=== PATIENT | male | born 1975 | race Caucasian/White ===

== ENCOUNTER 2023-10-12 18:35 | Observation (INO) ==
--- NOTE | 2023-10-12 18:41 | ED Triage Note ---
Date of Service October 12, 2023 Provider in Triage Author: Hetal Hawkins History of Present Illness This patient was briefly evaluated while in triage. An abbreviated physical exam was performed. This patient is a 48-year-old Male who presents to the ED for evaluation of abdominal pain, nausea, vomiting off and on for 2 weeks. No diarrhea. No previous abdominal issues or surgeries. Also having some shortness of breath. Symptoms worse with eating. Physical Exam CONSTITUTIONAL: No acute distress. Well appearing. RESPIRATORY: Clear to auscultation bilaterally. Equal expansion bilaterally. CARDIOVASCULAR: Regular rate and rhythm. GASTROINTESTINAL: Tenderness to palpation throughout the upper abdomen, soft and nondistended. Active bowel sounds. NEUROLOGIC: Alert and oriented X 4 with normal affect. Initial orders for labs and / or imaging were placed and patient was placed in the waiting area until a bed is available. Please see further documentation for the full ED course.
[2023-10-12 19:34] LABS: Basophils # (auto) 0.05 K/uL (0.00-0.20); Basophils % (auto) 0.5 %; Hematocrit (blood only) 42.2 % (42.0-52.0); Hemoglobin 14.2 g/dl (14.0-18.0); Immature Granulocytes # (auto) 0.03 K/uL (0.01-0.20); Immature Granulocytes % (auto) 0.3 %; Lymphocytes # (auto) 1.03 K/uL (1.20-3.40); Lymphocytes % (auto) 10.4 %; Mean Corpuscular Hemoglobin 29.2 pg (25.0-34.0); Mean Corpuscular Hgb Conc 33.6 g/dL (32.0-36.0); Mean Corpuscular Volume 86.7 fL (80.0-100.0); Monocytes # (auto) 0.73 K/uL (0.11-0.59); Monocytes % (auto) 7.4 %; Neutrophils # (auto) 7.87 K/uL (1.40-6.50); Neutrophils % (auto) 79.4 %; Platelet Count 289 K/uL (130-400); RDW Coefficient of Variation 13.4 % (11.5-14.5); RDW Standard Deviation 42.5 fL (36.4-46.3); Red Blood Count 4.87 M/uL (4.70-6.10); White Blood Count 9.91 K/ul (4.8-10.8)
[2023-10-12 19:51] LABS: Alanine Aminotransferase 171 U/L (7-52); Albumin Globulin Ratio 1.4 (0.9-2); Albumin Level 4.2 gm/dl (3.4-5.0); Alkaline Phosphatase 88 U/L (34-104); Anion Gap 7 (3-11); Aspartate Aminotransferase 137 U/L (13-39); BUN Creatinine Ratio 19.7 (10-20); Bilirubin,Total 1.3 mg/dl (0.2-1.0); Blood Urea Nitrogen 13 mg/dl (6-23); Calcium 9.1 mg/dl (8.6-10.3); Carbon Dioxide 28 mmol/L (21-32); Chloride 107 mmol/L (98-107); Creatinine Clr Calc Pharmacy 122.2 ml/min; Est GFR (African American) 131.6 ml/min; Est GFR (Non-African American) 113.5 ml/min; Globulin 3.1 gm/dl (2.5-4.0); Glucose 134 mg/dl (70-99(Fasting)); Lipase 34 U/L (11-82); Potassium 3.9 mmol/L (3.5-5.1); Sodium 142 mmol/L (136-145); Total Protein 7.3 gm/dl (6.0-8.3)
[2023-10-12 19:57] LABS: Troponin I High Sensitivity < 2.3 pg/ml (0-20)
[2023-10-12] MEDS: OPTIRAY 320 100ml IV ONE (20:39)
--- NOTE | 2023-10-12 21:02 | CT Scan Report ---
Exam(s): CT ABDOMEN + PELVIS With Contrast IV Amt: OPTIRAY 320 87ML EXAM: CT Abdomen and Pelvis With Intravenous Contrast CLINICAL HISTORY: Reason for exam: upper abdominal pain, vomiting. TECHNIQUE: Axial computed tomography images of the abdomen and pelvis with intravenous contrast. CTDI is 10.86 mGy and DLP is 526.37 mGy-cm. Automated exposure control was utilized for the study. A dose lowering technique was utilized adhering to the principles of ALARA. CONTRAST: Patient received OPTIRAY 320 87ML of IV contrast COMPARISON: No relevant prior studies available. FINDINGS: Lung bases are clear. There is cholelithiasis, gallbladder distention, and pericholecystic fluid. There is mild biliary dilatation with prominence of the intrahepatic bile ducts and common bile duct measuring 8 mm. No calcified duct stone is visible. Liver is significant for mild periportal edema but is otherwise unremarkable. Spleen is normal. Pancreas appears normal, without pancreatic inflammation or duct dilatation. Adrenal glands are normal. Kidneys enhance symmetrically. There is no hydronephrosis. Subcentimeter cortical cyst is present at the lower pole of the left kidney; no further follow-up is required. There may be a few punctate nonobstructing kidney stones bilaterally, but evaluation is limited by contrast phase. There is minor atherosclerosis of the abdominal aorta without aneurysm. There is no adenopathy. There is no free fluid or free air. Stomach and small bowel are fluid-filled. There is no mechanical obstruction. No mucosal thickening is evident. There is diverticulosis of the colon without diverticulitis. Appendix is normal. Urinary bladder and prostate are normal. Regional skeleton appears intact. There is disc degeneration in the lumbar spine. IMPRESSION: 1. Cholelithiasis, gallbladder distention, and pericholecystic fluid. Correlate clinically for cholecystitis. Consider ultrasound. 2. Mild biliary dilatation. No calcified choledocholithiasis visible. There is laboratory evidence of biliary obstruction, consider MRCP. 3. Fluid in the stomach and small bowel may reflect ileus or gastroenteritis. Electronically signed by: Felipe Stallworth M.D. 10/12/23 21:01 PM
[2023-10-12] MEDS: KETOROLAC TROMETHAMINE 15 MG/ML VIAL IV ONE (21:24)
[2023-10-12] MEDS: ONDANSETRON INJ 2 MG/ML 2 ML VIAL IV STA (21:26)
[2023-10-12] MEDS: FAMOTIDINE 20MG IV PUSH 20 MG/5 ML SYR IV STA (21:27)
[2023-10-12] MEDS: HYDROmorphone INJ 0.5 MG/0.5 ML SYR IV PRN (21:28)
[2023-10-12] MEDS: cefOXitin 2,000 MG/60 ML BAG IV STA (21:42)
[2023-10-12] MEDS: SODIUM CHLORIDE 0.9% 1,000 ML IV ONE (21:46)
[2023-10-12] MEDS: SODIUM CHLORIDE 0.9% 1,000 ML IV SCH (21:55)
--- NOTE | 2023-10-12 22:49 | Emergency Department Note ---
Impression & Plan Acute cholecystitis, Abdominal pain, right upper quadrant, Ileus, Nausea & vomiting ED Provider Note NAME: MASOOD ROSALES AGE: 48 SEX: Male INFORMANT: Patient ED PROVIDER(S): David Eckert MD CHIEF COMPLAINT: Upper abdominal pain PLAN: Disposition: Admitted Outpatient prescription management: none Referral: None MEDICAL DECISION MAKING: Patient presented because of abdominal pain and vomiting. The patient was quite uncomfortable. Protocol testing was performed due to high volume and high acuity in the emergency department. The patient was assessed. He was found to have an unremarkable CBC but elevated LFTs on chemistry panel. Patient's troponin and lipase unremarkable. ECG without acute ischemia. Chest x-ray negative. CT scan of the abdomen pelvis was very concerning for an ileus as well as cholecystitis. Radiology recommended MRCP versus ultrasound. Consultation was placed with surgery, Dr. Arce. He agreed with the MRCP route and asked for medicine to admit. Patient was treated with fluids, Dilaudid, Zofran, Pepcid and Mefoxin. Consultation was made with Dr. Calvin, [facility] service. Case was discussed and diagnostics were reviewed. Evaluated patient in the ER and admitted him for further management Care/management discussed with: manager of security Level of care consideration(s): After review of the information above and other included data, I feel the patient requires escalation of care to admission Triage Nursing notes: reviewed and agree them. Vital Signs: reviewed and remarkable for no significant abnormalities Additional History obtained from: none Chronic Medical/Social Conditions affecting care: none Prior/ Outside/ External records reviewed: none Differential Diagnosis: PUD, pancreatitis, biliary pathology, Appendicitis, testicular torsion, infections, diverticulitis, UTI, obstruction, mesenteric ischemia, aortic pathology, inflammatory bowel disease, renal colic, hernia, volvulus, constipation, as well as other pathologies. Diagnostics, independently interpreted by me: ECG: Twelve-lead ECG reveals a sinus rhythm with short RI at 81 bpm. Left axis deviation. Cardiac Monitoring: Cardiac monitoring ordered by me: The patient was placed on continuous cardiac monitoring and observed. It revealed a normal sinus rhythm at 76 beats per minute without ectopy or evidence of dysrhythmia. Medical decision rules: none Imaging studies: Chest x-ray. Findings: A chest x-ray was performed and revealed no pneumothorax, effusion, infiltrate, pulmonary edema, free air under the diaphragm, or wide mediastinum. Impression: No acute disease. I refer you to the EMR for further details. HPI: 48 year old Male arrives for evaluation of abdominal pain. This started this morning and is worsening throughout the day. The patient also notes the following associated symptoms, nausea, vomiting. Patient has right upper quadrant abdominal pain. Patient had an episode last week but that resolved after about half a day. Patient did note some clear vomitus as well as some dark appearance. The patient has found no relieving factors. Current pain is rated as 8/10. No prior abdominal surgeries. Pt denies LOC, headache, fevers, chills, diaphoresis, visual changes, neck pain, chest pain, breathing difficulties, back pain, melena, hematochezia, urinary symptoms, numbness, weakness, lymphadenopathy, rash, or other complaints. PAST MEDICAL HISTORY: See Below, patient did PAST SURGICAL HISTORY: See Below, SOCIAL HISTORY: See Below, smoker HOME MEDICATIONS: See Below ALLERGIES: See Below VITALS: See Below PHYSICAL EXAMINATION: GENERAL: Awake, alert, uncomfortable-appearing, in moderate distress HENT: Normocephalic, atraumatic. Oropharynx unremarkable. EYES: Normal conjunctiva. Sclera non-icteric. NECK: Inspection normal. Non-tender. Supple. No nuchal rigidity. FROM. No masses. RESPIRATORY: Clear to auscultation. No wheezes. No rales. Normal respiratory effort. CARDIAC: Normal rate. Normal rhythm. No murmurs. No rubs. Extremities warm and well perfused. Pulses equal. No JVD. GI: Soft, non-distended. Right upper quadrant tenderness to palpation. No rebound or guarding. No masses. RECTAL: Deferred. MUSCULOSKELETAL: Atraumatic. Chest examination reveals no tenderness. The back is symmetrical on inspection without obvious abnormality. There is no CVA tenderness to palpation. No joint edema. LOWER EXTREMITIES: Calves are equal size bilaterally and non-tender. No edema. No discoloration. NEURO: Normal sensorium. No sensory or motor deficits noted. SKIN: No rash or jaundice noted. PROCEDURES: none CRITICAL CARE: none OBSERVATION NOTE: none Past Med/Surg History Social History Smoking Status: Current every day smoker Preferred Language: Russian Feels Safe at Home: Yes Allergies Allergies Allergy/AdvReac Type Severity Reaction Status Date / Time No Known Allergies Allergy Unverified 10/12/23 21:30 Home Meds Home Medications Medication Instructions Recorded Confirmed No Known Home Medications 10/12/23 10/12/23 Results & Data (ED) Vital Signs Vital Signs - 24 hr 10/12/23 18:36 10/12/23 18:36 10/12/23 21:42 Temperature 36.6 C Temperature Source Temporal Artery Scan Pulse Rate 91 H 70 Pulse Rate [Right Finger] Respiratory Rate 18 16 Blood Pressure 119/82 Blood Pressure [Left Arm] Blood Pressure Mean 94 Blood Pressure Mean [Left Arm] Blood Pressure Position [Left Arm] Pulse Oximetry 97 Oxygen Delivery Method Sepsis Recent Fever Within 48 Hours No Sepsis New/Unexplained Change in Mental Status N/A Sepsis Action Taken by Nursing No Action Required 10/12/23 21:59 Temperature Temperature Source Pulse Rate Pulse Rate [Right Finger] 76 Respiratory Rate 24 Blood Pressure Blood Pressure [Left Arm] 135/88 Blood Pressure Mean Blood Pressure Mean [Left Arm] 103 Blood Pressure Position [Left Arm] Lying Pulse Oximetry 99 Oxygen Delivery Method Room Air Sepsis Recent Fever Within 48 Hours Sepsis New/Unexplained Change in Mental Status Sepsis Action Taken by Nursing Laboratory Data 10/12/23 19:17 10/12/23 19:17 Lab Results 10/12/23 Range/Units 19:17 WBC 9.91 (4.8-10.8) K/ul RBC 4.87 (4.70-6.10) M/uL Hgb 14.2 (14.0-18.0) g/dl Hct 42.2 (42.0-52.0) % MCV 86.7 (80.0-100.0) fL MCH 29.2 (25.0-34.0) pg MCHC 33.6 (32.0-36.0) g/dL RDW Std Deviation 42.5 (36.4-46.3) fL RDW Coeff of Atiya 13.4 (11.5-14.5) % Plt Count 289 (130-400) K/uL MPV 10.0 (9.4-12.4) fL Immature Gran % (Auto) 0.3 % Neut % (Auto) 79.4 % Lymph % (Auto) 10.4 % [place] % (Auto) 7.4 % Eos % (Auto) 2.0 % Baso % (Auto) 0.5 % Neut # (Auto) 7.87 H (1.40-6.50) K/uL Lymph # (Auto) 1.03 L (1.20-3.40) K/uL [place] # (Auto) 0.73 H (0.11-0.59) K/uL Eos # (Auto) 0.20 (0.00-0.50) K/uL Baso # (Auto) 0.05 (0.00-0.20) K/uL Immature Gran # (Auto) 0.03 (0.01-0.20) K/uL Sodium 142 (136-145) mmol/L Potassium 3.9 (3.5-5.1) mmol/L Chloride 107 (98-107) mmol/L Carbon Dioxide 28 (21-32) mmol/L Anion Gap 7 (3-11) BUN 13 (6-23) mg/dl Creatinine 0.66 (0.6-1.4) mg/dl Est Cr Clr Drug Dosing 122.2 ml/min Est GFR ( Amer) 131.6 ml/min Est GFR (Non-Af Amer) 113.5 ml/min BUN/Creatinine Ratio 19.7 (10-20) Glucose 134 H (70-99(Fasting)) mg/dl Calcium 9.1 (8.6-10.3) mg/dl Total Bilirubin 1.3 H (0.2-1.0) mg/dl AST 137 H (13-39) U/L ALT 171 H (7-52) U/L Alkaline Phosphatase 88 (34-104) U/L Troponin I High Sens < 2.3 (0-20) pg/ml Total Protein 7.3 (6.0-8.3) gm/dl Albumin 4.2 (3.4-5.0) gm/dl Globulin 3.1 (2.5-4.0) gm/dl Albumin/Globulin Ratio 1.4 (0.9-2) Lipase 34 (11-82) U/L Administered Medications Hydromorphone HCl (Hydromorphone Inj 0.5 Mg/0.5 Ml Syr) 0.5 mg IV Q15M PRN PRN Reason: Pain Stop: 10/26/23 21:07 Last Admin: 10/12/23 21:28 Dose: 0.5 mg Documented By: TJS Sodium Chloride (Nss) 1,000 mls @ 125 mls/hr IV .Q8H CASEY Stop: 11/11/23 21:14 Last Admin: 10/12/23 21:55 Dose: 125 mls/hr Documented By: ZULEYMA Discontinued Medications Sodium Chloride (Nss) 1,000 mls @ 999 mls/hr IV .Q1H1M ONE Stop: 10/12/23 22:08 Last Admin: 10/12/23 21:46 Dose: 999 mls/hr Documented By: ZULEYMA Famotidine (Pepcid 20mg Iv Push) 20 mg in 5 mls @ 2.5 mls/min IV NOW STA Stop: 10/12/23 21:10 Last Admin: 10/12/23 21:27 Dose: 2.5 mls/min Documented By: ZULEYMA Cefoxitin Sodium (Mefoxin) 2,000 mg in 60 mls @ 100 mls/hr IV NOW STA Stop: 10/12/23 21:44 Last Infusion: 10/12/23 22:26 Dose: Infused Documented By: Admin: 10/12/23 21:42 Dose: 100 mls/hr Documented By: ZULEYMA Ioversol (Optiray 320 100ml) 87 ml IV ONCE ONE Stop: 10/12/23 20:39 Last Admin: 10/12/23 20:39 Dose: 87 ml Documented By: GIOVANA Ketorolac Tromethamine (Ketorolac Tromethamine 15 Mg/Ml Vial) 10 mg IV NOW ONE Stop: 10/12/23 21:09 Last Admin: 10/12/23 21:24 Dose: 10 mg Documented By: ZULEYMA Ondansetron HCl (Ondansetron Inj 2 Mg/Ml 2 Ml Vial) 4 mg IV NOW STA Stop: 10/12/23 21:09 Last Admin: 10/12/23 21:26 Dose: 4 mg Documented By: ZULEYMA Imaging Data Radiologist's Impression: Abdomen/Pelvis CT 10/12/23 18:43 Exam(s): CT ABDOMEN + PELVIS With Contrast IV Amt: OPTIRAY 320 87ML EXAM: CT Abdomen and Pelvis With Intravenous Contrast CLINICAL HISTORY: Reason for exam: upper abdominal pain, vomiting. TECHNIQUE: Axial computed tomography images of the abdomen and pelvis with intravenous contrast. CTDI is 10.86 mGy and DLP is 526.37 mGy-cm. Automated exposure control was utilized for the study. A dose lowering technique was utilized adhering to the principles of ALARA. CONTRAST: Patient received OPTIRAY 320 87ML of IV contrast COMPARISON: No relevant prior studies available. FINDINGS: Lung bases are clear. There is cholelithiasis, gallbladder distention, and pericholecystic fluid. There is mild biliary dilatation with prominence of the intrahepatic bile ducts and common bile duct measuring 8 mm. No calcified duct stone is visible. Liver is significant for mild periportal edema but is otherwise unremarkable. Spleen is normal. Pancreas appears normal, without pancreatic inflammation or duct dilatation. Adrenal glands are normal. Kidneys enhance symmetrically. There is no hydronephrosis. Subcentimeter cortical cyst is present at the lower pole of the left kidney; no further follow-up is required. There may be a few punctate nonobstructing kidney stones bilaterally, but evaluation is limited by contrast phase. There is minor atherosclerosis of the abdominal aorta without aneurysm. There is no adenopathy. There is no free fluid or free air. Stomach and small bowel are fluid-filled. There is no mechanical obstruction. No mucosal thickening is evident. There is diverticulosis of the colon without diverticulitis. Appendix is normal. Urinary bladder and prostate are normal. Regional skeleton appears intact. There is disc degeneration in the lumbar spine. IMPRESSION: 1. Cholelithiasis, gallbladder distention, and pericholecystic fluid. Correlate clinically for cholecystitis. Consider ultrasound. 2. Mild biliary dilatation. No calcified choledocholithiasis visible. There is laboratory evidence of biliary obstruction, consider MRCP. 3. Fluid in the stomach and small bowel may reflect ileus or gastroenteritis. Electronically signed by: Felipe Stallworth M.D. 10/12/23 21:01 PM Discharge Plan Visit Data Chief Complaint: Abdominal Pain Stated Complaint: SEVERE ABD/CHEST PAIN ED Provider: David Eckert Discharge Problem: Acute cholecystitis, Abdominal pain, right upper quadrant, Ileus, Nausea & vomiting Forms Stand Alone Forms: My [employer] Prescriptions Prescriptions: No Action No Known Home Medications Referrals Referrals: PCP,NO [Primary Care Provider] -
--- NOTE | 2023-10-12 22:55 | History & Physical Report ---
Date of Service October 12, 2023 Assessment & Plan (1) Acute cholecystitis: Plan: 48-year-old male with no significant past medical history presents with abdominal pain and found to have cholecystitis. Patient states since last 1 month he is getting abdominal pain on and off and last 2 weeks is more consistent. Since last night he has constant pain in the right upper upper quadrant epigastric region and today pain progressed to very severe associate with nausea and vomited couple of times which prompted him come to the ER and CT scan showing possible cholecystitis. Whenever the pain is severe is feeling short of breath. And the pain radiating to the chest. Also having headache since last 10 days. Vision is also somewhat blurry since a few weeks now. Denies any headache. No runny nose. No sore throat. No cough. No patient is usually constipated. Stools are dark. Urine also dark. Ambulates okay. Currently resting comfortably and hemodynamically stable. Patient has not been to doctors for many years Acute cholecystitis Abdominal pain Elevated LFTs CT scan possible cholecystitis Will do MRCP and if any CBD stone will consult GI Follow repeat labs in a.m. N.p.o., IV fluids, IV cefoxitin, IV Dilaudid., IV antiemetics as needed Surgery consult in a.m. Close monitor DVT prophylaxis SCDs for now Disposition Medical floor Full code History of Present Illness Chief Complaint: Abdominal pain Primary Care Provider: NO PCP 48-year-old male with no significant past medical history presents with abdominal pain and found to have cholecystitis. Patient states since last 1 month he is getting abdominal pain on and off and last 2 weeks is more consistent. Since last night he has constant pain in the right upper upper quadrant and epigastric region and today pain progressed to very severe associate with nausea and vomited couple of times which prompted him come to the ER and CT scan showing possible cholecystitis. Whenever the pain is severe is feeling short of breath. And the pain radiating to the chest. Also having headache since last 10 days. Vision is also somewhat blurry since a few weeks now. Denies any headache. No runny nose. No sore throat. No cough. Patient is usually constipated. Stools are dark. Urine also dark. Ambulates okay. C urrently resting comfortably and hemodynamically stable. Patient has not been to doctors for many years Past medical history. No significant medical history as per patient, but not been to doctors for many years Past surgical history. Denies any surgical history. Social history. Patient used to smoke half pack every week but states since last 40 days he is only smoked 3 cigarettes. Says quit alcohol many many years ago. 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 Family history. Significant for diabetes as per patient Allergies Allergy/AdvReac Type Severity Reaction Status Date / Time No Known Allergies Allergy Unverified 10/12/23 21:30 Home Medications Medication Instructions Recorded Confirmed Type No Known Home Medications 10/12/23 10/12/23 History Past Med/Surg History Social History Smoking Status: Never smoker Hx Alcohol Use: No Hx Substance Use: Yes Last Used Substance: Unknown Preferred Language: Estonian Communication Ability: Effective Graphic Manager Required: No Beliefs That Will Affect Care: None Current Living Situation: Other Current Living Situation Comment: friend Other Information That Helps Us Care for You: No Feels Safe at Home: Yes Safety Concerns: Feels Safe At This Time Assistive Devices: None Review of Systems Review of Systems: All systems reviewed & are unremarkable except as noted in HPI & below Physical Exam Physical Exam: General- Not in distress Head- atraumatic Eyes- PERRL. ENT- oropharynx clear Neck- supple, no JVD. Lungs- clear to auscultation no wheezing or crackles. Heart- regular rate and rhythm; no murmur, no gallop. Abdomen- normal bowel sounds, soft, RUQ tenderness with mild guarding present. No distension. Extremities- no pretibial edema, no erythema seen. Neuro- alert, oriented PERRL, no facial palsy; no dysarthria; moves extremities. Results & Data Results & Data Vital Signs (Past 12 Hours) Vital Signs Temp Pulse Pulse Resp BP BP Pulse Ox 10/12/23 21:59 76 24 135/88 99 10/12/23 21:42 70 10/12/23 18:36 16 10/12/23 18:36 36.6 C 91 H 18 119/82 97 O2 Del Method 10/12/23 21:59 Room Air 10/12/23 21:42 10/12/23 18:36 10/12/23 18:36 Diagnostic Findings Laboratory Results WBC 9.91 K/ul (4.8-10.8) 10/12/23 19:17 RBC 4.87 M/uL (4.70-6.10) 10/12/23 19:17 Hgb 14.2 g/dl (14.0-18.0) 10/12/23 19:17 Hct 42.2 % (42.0-52.0) 10/12/23 19:17 MCV 86.7 fL (80.0-100.0) 10/12/23 19:17 MCH 29.2 pg (25.0-34.0) 10/12/23 19:17 MCHC 33.6 g/dL (32.0-36.0) 10/12/23 19:17 RDW Std Deviation 42.5 fL (36.4-46.3) 10/12/23 19:17 RDW Coeff of Atiya 13.4 % (11.5-14.5) 10/12/23 19:17 Plt Count 289 K/uL (130-400) 10/12/23 19:17 MPV 10.0 fL (9.4-12.4) 10/12/23 19:17 Immature Gran % (Auto) 0.3 % 10/12/23 19:17 Neut % (Auto) 79.4 % 10/12/23 19:17 Lymph % (Auto) 10.4 % 10/12/23 19:17 [place] % (Auto) 7.4 % 10/12/23 19:17 Eos % (Auto) 2.0 % 10/12/23 19:17 Baso % (Auto) 0.5 % 10/12/23 19:17 Neut # (Auto) 7.87 K/uL (1.40-6.50) H 10/12/23 19:17 Lymph # (Auto) 1.03 K/uL (1.20-3.40) L 10/12/23 19:17 [place] # (Auto) 0.73 K/uL (0.11-0.59) H 10/12/23 19:17 Eos # (Auto) 0.20 K/uL (0.00-0.50) 10/12/23 19:17 Baso # (Auto) 0.05 K/uL (0.00-0.20) 10/12/23 19:17 Immature Gran # (Auto) 0.03 K/uL (0.01-0.20) 10/12/23 19:17 Sodium 142 mmol/L (136-145) 10/12/23 19:17 Potassium 3.9 mmol/L (3.5-5.1) 10/12/23 19:17 Chloride 107 mmol/L (98-107) 10/12/23 19:17 Carbon Dioxide 28 mmol/L (21-32) 10/12/23 19:17 Anion Gap 7 (3-11) 10/12/23 19:17 BUN 13 mg/dl (6-23) 10/12/23 19:17 Creatinine 0.66 mg/dl (0.6-1.4) 10/12/23 19:17 Est Cr Clr Drug Dosing 122.2 ml/min 10/12/23 19:17 Est GFR ( Amer) 131.6 ml/min 10/12/23 19:17 Est GFR (Non-Af Amer) 113.5 ml/min 10/12/23 19:17 BUN/Creatinine Ratio 19.7 (10-20) 10/12/23 19:17 Glucose 134 mg/dl (70-99(Fasting)) H 10/12/23 19:17 Calcium 9.1 mg/dl (8.6-10.3) 10/12/23 19:17 Total Bilirubin 1.3 mg/dl (0.2-1.0) H 10/12/23 19:17 AST 137 U/L (13-39) H 10/12/23 19:17 ALT 171 U/L (7-52) H 10/12/23 19:17 Alkaline Phosphatase 88 U/L (34-104) 10/12/23 19:17 Troponin I High Sens < 2.3 pg/ml (0-20) 10/12/23 19:17 Total Protein 7.3 gm/dl (6.0-8.3) 10/12/23 19:17 Albumin 4.2 gm/dl (3.4-5.0) 10/12/23 19:17 Globulin 3.1 gm/dl (2.5-4.0) 10/12/23 19:17 Albumin/Globulin Ratio 1.4 (0.9-2) 10/12/23 19:17 Lipase 34 U/L (11-82) 10/12/23 19:17 Impressions Abdomen/Pelvis CT 10/12/23 18:43 Exam(s): CT ABDOMEN + PELVIS With Contrast IV Amt: OPTIRAY 320 87ML EXAM: CT Abdomen and Pelvis With Intravenous Contrast CLINICAL HISTORY: Reason for exam: upper abdominal pain, vomiting. TECHNIQUE: Axial computed tomography images of the abdomen and pelvis with intravenous contrast. CTDI is 10.86 mGy and DLP is 526.37 mGy-cm. Automated exposure control was utilized for the study. A dose lowering technique was utilized adhering to the principles of ALARA. CONTRAST: Patient received OPTIRAY 320 87ML of IV contrast COMPARISON: No relevant prior studies available. FINDINGS: Lung bases are clear. There is cholelithiasis, gallbladder distention, and pericholecystic fluid. There is mild biliary dilatation with prominence of the intrahepatic bile ducts and common bile duct measuring 8 mm. No calcified duct stone is visible. Liver is significant for mild periportal edema but is otherwise unremarkable. Spleen is normal. Pancreas appears normal, without pancreatic inflammation or duct dilatation. Adrenal glands are normal. Kidneys enhance symmetrically. There is no hydronephrosis. Subcentimeter cortical cyst is present at the lower pole of the left kidney; no further follow-up is required. There may be a few punctate nonobstructing kidney stones bilaterally, but evaluation is limited by contrast phase. There is minor atherosclerosis of the abdominal aorta without aneurysm. There is no adenopathy. There is no free fluid or free air. Stomach and small bowel are fluid-filled. There is no mechanical obstruction. No mucosal thickening is evident. There is diverticulosis of the colon without diverticulitis. Appendix is normal. Urinary bladder and prostate are normal. Regional skeleton appears intact. There is disc degeneration in the lumbar spine. IMPRESSION: 1. Cholelithiasis, gallbladder distention, and pericholecystic fluid. Correlate clinically for cholecystitis. Consider ultrasound. 2. Mild biliary dilatation. No calcified choledocholithiasis visible. There is laboratory evidence of biliary obstruction, consider MRCP. 3. Fluid in the stomach and small bowel may reflect ileus or gastroenteritis. Electronically signed by: Felipe Stallworth M.D. 10/12/23 21:01 PM ECG Additional Comments: EKG. Sinus rhythm with short [place] rate of 81. Left axis deviation Code Status & VTE Plan VTE Prophylaxis Plan VTE Prophylaxis will be ordered: Yes
[2023-10-12] MEDS ORDERED: ONDANSETRON INJ 2 MG/ML 2 ML VIAL IV PRN (23:48)
[2023-10-13] MEDS: HYDROmorphone INJ 0.5 MG/0.5 ML SYR IV PRN (00:33)
[2023-10-13] MEDS: D5W AND 1/2NSS 1,000 ML IV SCH (00:33)
[2023-10-13] MEDS: cefOXitin 2,000 MG in DEXTROSE 5 % MINI-B 50 ML IV SCH (03:23)
[2023-10-13 06:22] LABS: Basophils # (auto) 0.03 K/uL (0.00-0.20); Basophils % (auto) 0.5 %; Eosinophils # (auto) 0.21 K/uL (0.00-0.50); Eosinophils % (auto) 3.3 %; Immature Granulocytes # (auto) 0.02 K/uL (0.01-0.20); Immature Granulocytes % (auto) 0.3 %; Lymphocytes # (auto) 1.45 K/uL (1.20-3.40); Lymphocytes % (auto) 23.1 %; Mean Corpuscular Hemoglobin 28.8 pg (25.0-34.0); Mean Corpuscular Hgb Conc 33.3 g/dL (32.0-36.0); Mean Corpuscular Volume 86.5 fL (80.0-100.0); Mean Platelet Volume 10.1 fL (9.4-12.4); Monocytes # (auto) 0.58 K/uL (0.11-0.59); Monocytes % (auto) 9.2 %; Neutrophils % (auto) 63.6 %; Platelet Count 233 K/uL (130-400); RDW Coefficient of Variation 13.2 % (11.5-14.5); RDW Standard Deviation 41.7 fL (36.4-46.3); Red Blood Count 4.16 M/uL (4.70-6.10); White Blood Count 6.29 K/ul (4.8-10.8)
[2023-10-13 06:35] LABS: Albumin Level 3.5 gm/dl (3.4-5.0); BUN Creatinine Ratio 13.2 (10-20); Bilirubin Direct 0.7 mg/dl (0-0.2); Bilirubin,Total 1.6 mg/dl (0.2-1.0); Creatinine Clr Calc Pharmacy 152.1 ml/min; Est GFR (Non-African American) 124.2 ml/min; Magnesium 2.2 mg/dl (1.7-2.4); Potassium 3.3 mmol/L (3.5-5.1); Total Protein 5.4 gm/dl (6.0-8.3)
[2023-10-13] MEDS: FAMOTIDINE 20MG IV PUSH 20 MG/5 ML SYR IV SCH (08:01)
[2023-10-13] MEDS: PIPER/TAZO 4.5g in D5W MINI-B 100 ML IV ONE (09:02)
--- NOTE | 2023-10-13 09:48 | XRay Report ---
XR chest 1V portable CLINICAL HISTORY: Chest pain. COMPARISON STUDY: No previous studies for comparison. FINDINGS: Lung volumes are normal. Lungs are clear. There is no pneumothorax or pleural effusion. Car diac size is normal. Mediastinal contours are normal. There is no evidence for pulmonary edema. IMPRESSION: No acute cardiopulmonary findings. ACT 112: Negative or not required by law. Electronically signed by: Benny Layton M.D. 10/13/2023 9:47 AM
--- NOTE | 2023-10-13 09:48 | Surgery Consultation ---
Date of Consultation October 13, 2023 Assessment & Plan (1) Acute cholecystitis: will need lap randi but may need ERCP first. awaiting MRCP. continue IV antibiotics, symptom control, and NPO/IVF (2) Abdominal pain, right upper quadrant: (3) Elevated LFTs: History of Present Illness Attending Physician: Tristian Can MD History of Present Illness 48 yr old with 1-2 day hx of upper abdominal pain and nausea. ER w/u revealed acute cholecystitis but he also has elevated LFT's which increased this AM. currently feeling improved and pain went from 10/10 on admission to 410 curre ntly. Allergies Allergy/AdvReac Type Severity Reaction Status Date / Time No Known Allergies Allergy Unverified 10/12/23 21:30 Home Medications Medication Instructions Recorded Confirmed Type No Known Home Medications 10/12/23 10/12/23 History Patient History Social History Smoking Status: Never smoker Hx Alcohol Use: No Hx Substance Use: Yes Last Used Substance: Unknown Preferred Language: [place] Communication Ability: Effective Animal Control Licensing Worker Required: No Beliefs That Will Affect Care: None Current Living Situation: Other Current Living Situation Comment: friend Other Information That Helps Us Care for You: No Feels Safe at Home: Yes Safety Concerns: Feels Safe At This Time Assistive Devices: None Physical Exam Constitutional: WD/WN, vitals as above no acute distress and not ill appearing Eyes: PERRL, conjunctivae normal, anicteric sclerae EOM intact bilaterally ENMT: external ear and nose normal, oropharynx normal Ears: no hearing impairment Neck: trachea midline, no thyromegaly Respiratory: normal respiratory effort; no respiratory distress and does not use accessory muscles Cardiovascular: Rate/Rhythm: regular rate and regular rhythm Gastrointestinal (Abdomen): soft. +RUQ ttp. no g/r/r. Skin: no rashes, warm and dry Psychiatric: Orientation: alert, oriented x 3 and cooperative Results & Data Vital Signs (Past 12 Hours) Vital Signs Temp Pulse Resp BP BP Pulse Ox O2 Del Method 10/13/23 07:34 36.3 C L 64 16 95/64 L 100 Room Air 10/13/23 00:11 36.5 C 77 18 100/62 100 Room Air 10/13/23 00:03 Room Air 10/12/23 23:50 36.5 C 77 16 100 Room Air 10/12/23 23:30 97/60 L Room Air 10/12/23 21:59 76 24 135/88 99 Room Air PG Care Time/CCT Total # of Minutes Spent Total Time Spent with Patient: Total time spent is greater than 50% in coordination of care (as documented) at patient's floor/unit and/or counseling patient: Coding Level of Care Code 49669 IN/OBS CONSULT LVL 3,45M Diagnoses Acute cholecystitis K81.0 Abdominal pain, right upper quadrant R10.11 Elevated LFTs R79.89
--- NOTE | 2023-10-13 09:56 | Hospitalist Progress Note ---
Date of Service October 13, 2023 Assessment & Plan (1) Acute cholecystitis: Plan: 48 yo M with no significant past medical history presents with abdominal pain and found to have cholecystitis. Patient states since last 1 month he is getting abdominal pain on and off and last 2 weeks is more consistent. Since last night he has constant pain in the right upper upper quadrant epigastric region and today pain progressed to very severe associate with nausea and vomited couple of times which prompted him come to the ER and CT scan showing possible cholecystitis. Whenever the pain is severe is feeling short of breath. And the pain radiating to the chest. Also having headache since last 10 days. Vision is also somewhat blurry since a few weeks now. Denies any headache. No runny nose. No sore throat. No cough. No patient is usually constipated. S tools are dark. Urine also dark. Ambulates okay. Currently resting comfortably and hemodynamically stable. Patient has not been to doctors for many years Acute cholecystitis, choledocholithiasis Abdominal pain Elevated LFTs CT scan c/w cholecystitis MRCP obtained - 1. No biliary ductal dilatation. Exam mildly compromised by motion artifact however suspected small distal common bile duct calculus measuring approximately 2 mm. 2. Findings suggestive of acute cholecystitis. N.p.o., IV fluids, IV cefoxitin -> IV zosyn, IV Dilaudid., IV antiemetics as needed Surgery and GI consulted and discussed with in detail as above Cont. IVF, abx, can try clears, NPO after MN, recheck labs, LFTs tmrw AM Close monitor DVT prophylaxis SCDs for now Disposition Medical floor Full code Admission and Anticipated Discharge Date Admission Date: October 12, 2023 Subjective Pt seen in follow up of acute cholecystitis MRCP obtained and c/w poss. choledocholithiasis Discussed w/ surgery and GI - pt will need ERCP and cholecystectomy. Currently no provider from GI over the weekend to do ERCP, however provider available on Sunday. If pt's clinical status deteriorates may need to be transferred. Pt aware of possible transfer. Dr. Perez (GI) to see the pt - also discussed with him that if pt would need transfer it can be to [facility]. Currently pt afebrile and WBC not elevated - SBP in 90s - recommends providing bolus in addition to his current maintenance fluid (125 cc/hr since admission) and pt may not need transfer at this time. NS bolus ordered as well as albumin. RN updated at the bedside as well as the pt. Pt is in agreement with current plan. Transfer center also updated. Pt denies any fever, chills, chest pain, shortness of breath. He is asking about food. Pain managed with IV dilaudid, also received iv toradol. Update: discussed again w/ GI and surgery - start clears, NPO after MN, repeat LFTs tmrw, lipase, poss. cholecystectomy tmrw. [employer] Station Collector also updated. Review of Systems Review of Systems: All systems reviewed & are unremarkable except as noted in Subjective Physical Exam Physical Exam: General- WD/WN in NAD Head- atraumatic Eyes- PERRL. ENT- oropharynx clear Neck- supple, no JVD. Lungs- clear to auscultation no wheezing or crackles. Heart- regular rate and rhythm; no murmur, no gallop. Abdomen- normal bowel sounds, soft, RUQ tenderness with mild guarding present. No distension. Extremities- no pretibial edema, moves extremities Neuro- alert, oriented PERRL, no facial palsy; no dysarthria; moves extremities. Results & Data Results & Data Vital Signs (Past 12 Hours) Vital Signs Temp Pulse Resp BP BP Pulse Ox O2 Del Method 10/13/23 07:34 36.3 C L 64 16 95/64 L 100 Room Air 10/13/23 00:11 36.5 C 77 18 100/62 100 Room Air 10/13/23 00:03 Room Air 10/12/23 23:50 36.5 C 77 16 100 Room Air 10/12/23 23:30 97/60 L Room Air 10/12/23 21:59 76 24 135/88 99 Room Air Laboratory Results 10/13/23 10/12/23 Range/Units 05:56 19:17 WBC 6.29 9.91 (4.8-10.8) K/ul RBC 4.16 L 4.87 (4.70-6.10) M/uL Hgb 12.0 L 14.2 (14.0-18.0) g/dl Hct 36.0 L 42.2 (42.0-52.0) % MCV 86.5 86.7 (80.0-100.0) fL MCH 28.8 29.2 (25.0-34.0) pg MCHC 33.3 33.6 (32.0-36.0) g/dL RDW Std Deviation 41.7 42.5 (36.4-46.3) fL RDW Coeff of Atiya 13.2 13.4 (11.5-14.5) % Plt Count 233 289 (130-400) K/uL MPV 10.1 10.0 (9.4-12.4) fL Immature Gran % (Auto) 0.3 0.3 % Neut % (Auto) 63.6 79.4 % Lymph % (Auto) 23.1 10.4 % [place] % (Auto) 9.2 7.4 % Eos % (Auto) 3.3 2.0 % Baso % (Auto) 0.5 0.5 % Neut # (Auto) 4.00 7.87 H (1.40-6.50) K/uL Lymph # (Auto) 1.45 1.03 L (1.20-3.40) K/uL [place] # (Auto) 0.58 0.73 H (0.11-0.59) K/uL Eos # (Auto) 0.21 0.20 (0.00-0.50) K/uL Baso # (Auto) 0.03 0.05 (0.00-0.20) K/uL Immature Gran # (Auto) 0.02 0.03 (0.01-0.20) K/uL Sodium 140 142 (136-145) mmol/L Potassium 3.3 L 3.9 (3.5-5.1) mmol/L Chloride 111 H 107 (98-107) mmol/L Carbon Dioxide 24 28 (21-32) mmol/L Anion Gap 5 7 (3-11) BUN 7 13 (6-23) mg/dl Creatinine 0.53 L 0.66 (0.6-1.4) mg/dl Est Cr Clr Drug Dosing 152.1 122.2 ml/min Est GFR ( Amer) 144.0 131.6 ml/min Est GFR (Non-Af Amer) 124.2 113.5 ml/min BUN/Creatinine Ratio 13.2 19.7 (10-20) Glucose 102 H 134 H (70-99(Fasting)) mg/dl Calcium 8.0 L 9.1 (8.6-10.3) mg/dl Magnesium 2.2 (1.7-2.4) mg/dl Total Bilirubin 1.6 H 1.3 H (0.2-1.0) mg/dl Direct Bilirubin 0.7 H (0-0.2) mg/dl AST 103 H 137 H (13-39) U/L ALT 154 H 171 H (7-52) U/L Alkaline Phosphatase 74 88 (34-104) U/L Troponin I High Sens < 2.3 (0-20) pg/ml Total Protein 5.4 L D 7.3 (6.0-8.3) gm/dl Albumin 3.5 4.2 (3.4-5.0) gm/dl Globulin 3.1 (2.5-4.0) gm/dl Albumin/Globulin Ratio 1.4 (0.9-2) Lipase 34 (11-82) U/L Medications Administered Current Inpatient Medications Hydromorphone HCl (Hydromorphone Inj 0.5 Mg/0.5 Ml Syr) 0.5 mg IV Q3H PRN PRN Reason: Pain Stop: 10/26/23 23:47 Last Admin: 10/13/23 03:26 Dose: 0.5 mg Dextrose/Sodium Chloride (D5w And 1/2nss) 1,000 mls @ 125 mls/hr IV .Q8H [facility] Stop: 11/11/23 23:47 Last Infusion: 10/13/23 09:41 Dose: 125 mls/hr Famotidine (Pepcid 20mg Iv Push) 20 mg in 5 mls @ 2.5 mls/min IV Q12H [facility] Stop: 11/12/23 08:59 Last Admin: 10/13/23 08:01 Dose: 2.5 mls/min Piperacillin Sod/Tazobactam (Sod 4.5 gm/ Dextrose) 100 mls @ 25 mls/hr IV Q8H [facility]; Protocol Stop: 10/23/23 13:59 Ondansetron HCl (Ondansetron Inj 2 Mg/Ml 2 Ml Vial) 4 mg IV Q6H PRN PRN Reason: Nausea Stop: 11/11/23 23:47
[2023-10-13] MEDS: POTASSIUM CHLORIDE / WTR 10 MEQ/100 ML PLCT IV SCH (10:08)
[2023-10-13 10:09] LABS: Appearance Urine Clear (Clear); Bilirubin Urine Negative (Negative); Blood Urine Negative (Negative); Color Urine Dark Yellow; Glucose Urine UA Negative (Negative); Ketones Urine Negative (Negative); Leukocyte Esterase Urine Negative (Negative); Nitrite Urine Negative (Negative); Protein Urine Negative (Negative); Specific Gravity Urine 1.019 (1.000-1.030); Urobilinogen Urine Negative (Negative)
--- NOTE | 2023-10-13 10:34 | XRay Report ---
ORBIT RADIOGRAPHS 3 VIEWS HISTORY: pre-MRI screening. COMPARISON: None. FINDINGS: There are no radiopaque foreign bodies identified within the orbits. IMPRESSION: No radiopaque foreign bodies identified within the orbits. ACT 112: Negative or not required by law. Electronically signed by: Benny Layton M.D. 10/13/2023 10:33 AM
[2023-10-13] MEDS: HYDROmorphone INJ 0.5 MG/0.5 ML SYR IV STA (13:10)
--- NOTE | 2023-10-13 13:26 | Electrocardiogram Report ---
Test Reason : Blood Pressure : / mmHG Vent. Rate : 081 BPM Atrial Rate : 081 BPM P-R Int : 108 ms QRS Dur : 086 ms QT Int : 400 ms P-R-T Axes : 041 -36 082 degrees QTc Int : 464 ms Sinus rhythm with short KS Left axis deviation Abnormal ECG No previous ECGs available Confirmed by Vu Sylvester ([id number]) on 10/13/2023 1:25:56 PM Referred By: REFERRED SELF Confirmed By:Vu Sylvester
--- NOTE | 2023-10-13 13:27 | Magnetic Resonance Report ---
MRCP CLINICAL HISTORY: elevated LFT cholecystitis TECHNIQUE: Utilizing a 1.5 Mirta magnet and dedicated coil, multiplanar, multiecho imaging of the [facility] abdomen was performed utilizing heavily T2 weighted pulsing sequences without IV contrast. COMPARISON STUDY: CT of the abdomen and pelvis October 12, 2023. FINDINGS: There are several gallstones within the gallbladder. The gallbladder is moderately distende d. There is mild gallbladder wall thickening with pericholecystic fluid. No biliary ductal dilatation is present. Common bile duct measures 6 mm in caliber. This exam is compromised by motion artifact. Suspected small distal common bile duct calculus measures 2 mm. No pancreatic ductal dilatation is pr esent. There is no peripancreatic fluid. Pancreas is unremarkable on unenhanced exam. No hepatic lesi ons are identified. Spleen, adrenal glands and kidneys are unremarkable. Is no hydronephrosis. There is trace fluid within the right paracolic gutter. IMPRESSION: 1. No biliary ductal dilatation. Exam mildly compromised by motion artifact however suspected small d istal common bile duct calculus measuring approximately 2 mm. 2. Findings suggestive of acute cholecystitis. ACT 112: Negative or not required by law. Electronically signed by: Benny Layton M.D. 10/13/2023 1:25 PM
[2023-10-13] MEDS: PIPERACILLIN/TAZOBACTAM 4.5 GM in DEXTROSE 5% MINI-B 100 ML IV SCH (13:41)
[2023-10-13] MEDS: KETOROLAC TROMETHAMINE 15 MG/ML VIAL IV ONE (15:48)
[2023-10-13] MEDS: ALBUMIN 25% 25 GM/100 ML VIAL IV ONE (15:50)
[2023-10-13] MEDS: SODIUM CHLORIDE 0.9% 1,000 ML IV ONE (16:01)
[2023-10-13] MEDS: SODIUM CHLORIDE 0.9% 1,000 ML IV SCH (19:57)
[2023-10-14 06:07] LABS: Hematocrit (blood only) 33.9 % (42.0-52.0); Hemoglobin 11.4 g/dl (14.0-18.0); Mean Corpuscular Hemoglobin 29.6 pg (25.0-34.0); Mean Corpuscular Hgb Conc 33.6 g/dL (32.0-36.0); Mean Corpuscular Volume 88.1 fL (80.0-100.0); Mean Platelet Volume 10.1 fL (9.4-12.4); Platelet Count 209 K/uL (130-400); RDW Coefficient of Variation 13.5 % (11.5-14.5); RDW Standard Deviation 43.8 fL (36.4-46.3); Red Blood Count 3.85 M/uL (4.70-6.10); White Blood Count 4.72 K/ul (4.8-10.8)
[2023-10-14 06:26] LABS: Albumin Globulin Ratio 1.9 (0.9-2); Albumin Level 3.4 gm/dl (3.4-5.0); BUN Creatinine Ratio 4.9 (10-20); Bilirubin,Total 0.6 mg/dl (0.2-1.0); Creatinine Clr Calc Pharmacy 132.2 ml/min; Est GFR (African American) 135.9 ml/min; Est GFR (Non-African American) 117.3 ml/min; Globulin 1.8 gm/dl (2.5-4.0); Magnesium 1.9 mg/dl (1.7-2.4); Phosphorus 3.3 mg/dl (2.5-4.9); Potassium 3.3 mmol/L (3.5-5.1); Total Protein 5.2 gm/dl (6.0-8.3)
--- NOTE | 2023-10-14 07:35 | Hospitalist Progress Note ---
Date of Service October 14, 2023 Assessment & Plan (1) Acute cholecystitis: Plan: 48 yo M with no significant past medical history presents with abdominal pain and found to have cholecystitis. Patient states since last 1 month he is getting abdominal pain on and off and last 2 weeks is more consistent. Since last night he has constant pain in the right upper upper quadrant epigastric region and today pain progressed to very severe associate with nausea and vomited couple of times which prompted him come to the ER and CT scan showing possible cholecystitis. Whenever the pain is severe is feeling short of breath. And the pain radiating to the chest. Also having headache since last 10 days. Vision is also somewhat blurry since a few weeks now. Denies any headache. No runny nose. No sore throat. No cough. No patient is usually constipated. S tools are dark. Urine also dark. Ambulates okay. Currently resting comfortably and hemodynamically stable. Patient has not been to doctors for many years Acute cholecystitis, choledocholithiasis Abdominal pain Elevated LFTs CT scan c/w cholecystitis MRCP obtained - 1. No biliary ductal dilatation. Exam mildly compromised by motion artifact however suspected small distal common bile duct calculus measuring approximately 2 mm. 2. Findings suggestive of acute cholecystitis. N.p.o., IV fluids, IV cefoxitin -> IV zosyn, IV Dilaudid., IV antiemetics as needed Surgery and GI consulted and discussed with 10/13 LFTs down -> pt likely passed the stone - plan for OR Pt is now s/p cholecystectomy (10/14/2023) Cont. IVF, abx Monitor LFTs, CBC Closely monitor DVT prophylaxis SCDs for now Disposition- Medical floor Full code Admission and Anticipated Discharge Date Admission Date: October 12, 2023 Subjective Pt seen in follow up of acute cholecystitis MRCP obtained and c/w poss. choledocholithiasis LFTs improved this AM -> likely passed the stone Pt underwent cholecystectomy today. Currently laying in bed in NAD, reporting abdominal pain. No chest pain or shortness of breath. No fever, chills. Friend present at the bedside and updated. Review of Systems Review of Systems: All systems reviewed & are unremarkable except as noted in Subjective Physical Exam Physical Exam: General- WD/WN in NAD Head- atraumatic Eyes- PERRL. ENT- oropharynx clear Neck- supple, no JVD. Lungs- clear to auscultation no wheezing or crackles. Heart- regular rate and rhythm; no murmur, no gallop. Abdomen- +bowel sounds, soft, + tender to palpation (post surgery). No distension. Extremities- no pretibial edema, moves extremities Neuro- alert, oriented PERRL, no facial palsy; no dysarthria; moves e xtremities. Results & Data Results & Data Vital Signs (Past 12 Hours) Vital Signs Temp Pulse Resp BP Pulse Ox O2 Del Method 10/13/23 20:05 36.6 C 70 18 102/62 100 Room Air Laboratory Results 10/14/23 10/13/23 Range/Units 05:52 09:50 WBC 4.72 L (4.8-10.8) K/ul RBC 3.85 L (4.70-6.10) M/uL Hgb 11.4 L (14.0-18.0) g/dl Hct 33.9 L (42.0-52.0) % MCV 88.1 (80.0-100.0) fL MCH 29.6 (25.0-34.0) pg MCHC 33.6 (32.0-36.0) g/dL RDW Std Deviation 43.8 (36.4-46.3) fL RDW Coeff of Atiya 13.5 (11.5-14.5) % Plt Count 209 (130-400) K/uL MPV 10.1 (9.4-12.4) fL Sodium 141 (136-145) mmol/L Potassium 3.3 L (3.5-5.1) mmol/L Chloride 114 H (98-107) mmol/L Carbon Dioxide 22 (21-32) mmol/L Anion Gap 5 (3-11) BUN 3 L (6-23) mg/dl Creatinine 0.61 (0.6-1.4) mg/dl Est Cr Clr Drug Dosing 132.2 ml/min Est GFR ( Amer) 135.9 ml/min Est GFR (Non-Af Amer) 117.3 ml/min BUN/Creatinine Ratio 4.9 L (10-20) Glucose 83 (70-99(Fasting)) mg/dl Calcium 8.0 L (8.6-10.3) mg/dl Phosphorus 3.3 (2.5-4.9) mg/dl Magnesium 1.9 (1.7-2.4) mg/dl Total Bilirubin 0.6 D (0.2-1.0) mg/dl AST 30 (13-39) U/L ALT 99 H (7-52) U/L Alkaline Phosphatase 65 (34-104) U/L Total Protein 5.2 L (6.0-8.3) gm/dl Albumin 3.4 (3.4-5.0) gm/dl Globulin 1.8 L (2.5-4.0) gm/dl Albumin/Globulin Ratio 1.9 (0.9-2) Lipase 21 (11-82) U/L Urine Color Dark Yellow Urine Appearance Clear (Clear) Urine pH 6.0 (4.5-7.5) Ur Specific [place] 1.019 (1.000-1.030) Urine Protein Negative (Negative) Urine Glucose (UA) Negative (Negative) Urine Ketones Negative (Negative) Urine Blood Negative (Negative) Urine Nitrite Negative (Negative) Urine Bilirubin Negative (Negative) Urine Urobilinogen Negative (Negative) Ur Leukocyte Esterase Negative (Negative) Medications Administered Current Inpatient Medications Hydromorphone HCl (Hydromorphone Inj 0.5 Mg/0.5 Ml Syr) 0.5 mg IV Q3H PRN PRN Reason: Pain Stop: 10/26/23 23:47 Last Admin: 10/14/23 03:25 Dose: 0.5 mg Famotidine (Pepcid 20mg Iv Push) 20 mg in 5 mls @ 2.5 mls/min IV Q12H [facility] Stop: 11/12/23 08:59 Last Admin: 10/13/23 21:52 Dose: 2.5 mls/min Piperacillin Sod/Tazobactam (Sod 4.5 gm/ Dextrose) 100 mls @ 25 mls/hr IV Q8H [facility]; Protocol Stop: 10/23/23 13:59 Last Admin: 10/14/23 06:04 Dose: 25 mls/hr Sodium Chloride (Nss) 1,000 mls @ 125 mls/hr IV .Q8H [facility] Stop: 11/12/23 19:44 Last Admin: 10/14/23 03:23 Dose: 125 mls/hr Potassium Chloride (K Alex / Wtr) 10 meq in 100 mls @ 100 mls/hr IV Q1H [facility] Stop: 10/14/23 10:44 Ondansetron HCl (Ondansetron Inj 2 Mg/Ml 2 Ml Vial) 4 mg IV Q6H PRN PRN Reason: Nausea Stop: 11/11/23 23:47
[2023-10-14] MEDS: POTASSIUM CHLORIDE / WTR 10 MEQ/100 ML PLCT IV SCH (08:09)
[2023-10-14] MEDS: POTASSIUM CHLORIDE CRTAB 20 MEQ TABCR PO STA (08:09)
[2023-10-14] MEDS ORDERED: MIDAZOLAM HCL 1 MG/ML 2ML VIAL ONE (09:03)
[2023-10-14] MEDS ORDERED: fentaNYL citrate PF 100 MCG/2 ML VIAL ONE (09:03)
--- NOTE | 2023-10-14 09:09 | History & Physical Bridge Note ---
Date of Service October 14, 2023 History & Physical Bridge Note I have examined the patient, reviewed the History & Physical and in the interval since the performance of the History & Physical I have noted the following changes of clinical significance: pt seen. feeling better. LFT's have no normalized indicating likely passage of CBD stone. will proceed today with lap randi/cholangiogram. discussed options/risks ( bleeding/infection/bile duct injury/injury to other organs/dvt/pe/mi/cva etc....) questions answered. he agrees with plan. will proceed this morning with lap randi/IOC
[2023-10-14] MEDS ORDERED: ACETAMINOPHEN 1000 MG/100 ML IV IV ONE (09:32)
[2023-10-14] MEDS ORDERED: ONDANSETRON INJ 2 MG/ML 2 ML VIAL ONE (09:33)
[2023-10-14] MEDS ORDERED: ROCURONIUM BROMIDE 10 MG/ML 5 ML VIAL IV ONE (09:33)
[2023-10-14] MEDS ORDERED: LIDOCAINE 2% 2 ML VIAL/AMP(20MG/ML) INFIL ONE (09:33)
[2023-10-14] MEDS ORDERED: PROPOFOL IV EMULSION 10 MG/ML 20 ML VIAL IV ONE (09:33)
--- NOTE | 2023-10-14 09:53 | Anesthesiology Consultation ---
Date of Service October 14, 2023 Assessment & Plan Chart Review Chart Review: Acceptable Risk for Surgery and Patient NOT seen in Pre Admission Testing Consults Requested none History Surgery Operation Date: 10/14/23 09:30 Proposed Procedures p Laparoscopic Cholecystectomy - Hans Arce DO Height/Weight Height: 5 ft 6 in Weight: 64.4 kg Allergies Allergy/AdvReac Type Severity Reaction Status Date / Time No Known Allergies Allergy Unverified 10/12/23 21:30 Medications Home Medications Medication Instructions Recorded Confirmed Last Taken No Known Home Medications 10/12/23 10/12/23 Unknown Active Medications Generic Name Dose Route Start Last Admin Trade Name Freq PRN Reason Stop Dose Admin Hydromorphone HCl 0.5 mg 10/12/23 23:48 10/14/23 03:25 Hydromorphone Inj 0.5 Mg/0.5 Ml Syr IV 10/26/23 23:47 0.5 mg Q3H PRN Administration Pain Famotidine 20 mg in 5 mls @ 2.5 mls/min 10/13/23 09:00 10/14/23 08:08 Pepcid 20mg Iv Push IV 11/12/23 08:59 2.5 mls/min Q12H [facility] Administration Piperacillin Sod/Tazobactam 100 mls @ 25 mls/hr 10/13/23 14:00 10/14/23 06:04 Sod 4.5 gm/ Dextrose IV 10/23/23 13:59 25 mls/hr Q8H [facility] Administration Protocol Sodium Chloride 1,000 mls @ 125 mls/hr 10/13/23 19:45 10/14/23 09:38 Nss IV 11/12/23 19:44 0 mls/hr .Q8H [facility] Infusion Potassium Chloride 10 meq in 100 mls @ 100 mls/hr 10/14/23 07:45 10/14/23 09:38 K Alex / Wtr IV 10/14/23 10:44 0 mls/hr Q1H [facility] Infusion NPO Date Last Intake of Fluids: 10/13/23 Date Last Intake of Solids: 10/13/23 Social History Smoking Status: Never smoker Hx Alcohol Use: No Hx Substance Use: Yes substance use type: does not use Last Used Substance: Unknown Physical Exam Vital Signs Last Vital Signs Temp 36.6 C 10/14/23 08:07 Pulse 71 10/14/23 08:07 Resp 16 10/14/23 08:07 BP 110/72 10/14/23 08:07 Pulse Ox 98 10/14/23 08:07 O2 Del Method Room Air 10/14/23 08:07 Constitutional WD/WN, vitals as above no acute distress and not ill appearing Eyes PERRL, conjunctivae normal, anicteric sclerae EOM intact bilaterally ENMT external ear and nose normal, oropharynx normal Ears: no hearing impairment Neck trachea midline, no thyromegaly Respiratory normal respiratory effort; no respiratory distress and does not use accessory muscles Cardiovascular Rate/Rhythm: regular rate and regular rhythm Skin no rashes, warm and dry Psychiatric Orientation: alert, oriented x 3 and cooperative Testing Laboratory Results 10/14/23 05:52 10/14/23 05:52 Urine Color Dark Yellow 10/13/23 09:50 Urine Appearance Clear (Clear) 10/13/23 09:50 Urine pH 6.0 (4.5-7.5) 10/13/23 09:50 Ur Specific [place] 1.019 (1.000-1.030) 10/13/23 09:50 Urine Protein Negative (Negative) 10/13/23 09:50 Urine Glucose (UA) Negative (Negative) 10/13/23 09:50 Urine Ketones Negative (Negative) 10/13/23 09:50 Urine Nitrite Negative (Negative) 10/13/23 09:50 Ur Leukocyte Esterase Negative (Negative) 10/13/23 09:50
[2023-10-14] MEDS ORDERED: ATROPINE SULFATE 0.1 MG/ML 10ML SYR IV PRN (09:58)
[2023-10-14] MEDS ORDERED: ePHEDrine sulfate 50 MG/ML AMP IV PRN (09:58)
[2023-10-14] MEDS ORDERED: DROPERIDOL 5 MG/2 ML VIAL IV PRN (09:58)
[2023-10-14] MEDS ORDERED: KETAMINE HCL 10MG/ML SYR ONE (10:15)
[2023-10-14] MEDS ORDERED: ceFAZolin 330 MG/ML 1 GM VIAL ONE (10:25)
[2023-10-14] MEDS: IOVERSOL 50ml IV PRN (10:58)
--- NOTE | 2023-10-14 11:12 | Fluoroscopy Report ---
INTRAOPERATIVE CHOLANGIOGRAM HISTORY: Post cholecystectomy. FLUOROSCOPY TIME: 36 seconds. 2 fluoroscopic spot images. Exposure dose: Not obtained. FINDINGS: Fluoroscopy was provided for an intraoperative cholangiogram status post cholecystectomy. C ontrast was injected through the cystic duct remnant. The common bile duct is normal in course and ca liber. Multiple small round filling defects seen within the common bile duct and intrahepatic bile du cts. These favor gas bubbles. A retained stone would be difficult to exclude. Contrast extends into t he small bowel. There is no intrahepatic bile duct dilatation. IMPRESSION: Fluoroscopy provided for an intraoperative cholangiogram status post cholecystectomy. Mul tiple small round filling defects seen within the common bile duct and intrahepatic bile ducts. These favor gas bubbles. A retained stone would be difficult to exclude. ACT 112: Negative or not required by law. Electronically signed by: Daren Gutierrez M.D. 10/14/2023 11:11 AM
[2023-10-14] MEDS ORDERED: SUGAMMADEX SODIUM 200 MG/2 ML VIAL IV ONE (11:13)
[2023-10-14] MEDS: BUPIVACAINE/EPINEPHRINE 0.5% MPF 1:200,000 30 ML VIAL ONE (11:20)
--- NOTE | 2023-10-14 11:30 | Operative Report ---
PG Post Operative Report Pre & Post Diagnosis Operation Date: 10/14/23 09:30 Pre-Op Diagnosis: Cholecystitis;cholelithiasis;choledocholithiasis; elevated LFT's Post-Op Diagnosis: Cholecystitis; cholelithiasis I identified the patient and participated in the time-out.: Yes Procedure Operation Date: 10/14/23 09:30 Actual Procedures p Laparoscopic cholecystectomy with intraop cholangiogram, Laparoscopic Exploration of common bile duct. - Hans Arce DO Surgeon Hans Arce DO Airconditioning Drafting Officer negar Mosquera Estimated Blood Loss 10 Findings Consistent with Post-Op Diagnosis Specimens gallbladder Description of Procedure After informed consent was obtained the patient was taken to the operating room and placed in the supine position. After successful intubation the abdomen was sterilely prepped and draped in usual fashion. A periumbilical incision was made with an 11 blade scalpel and carried down through the soft tissue using electrocautery. The anterior rectus fascia was opened using electrocautery and 2 #0 Vicryl stay sutures were placed. The peritoneum was elevated with hemostats and incised under direct vision using Metzenbaum scissors. A finger sweep was performed and a 12 mm Kapoor trocar was placed. The abdomen was insufflated to 18 mmHg. The laparoscope was inserted and the abdomen was e xamined in 360. No gross abnormalities were identified. A subxiphoid 5 mm port and 2 right upper quadrant 5 mm ports were placed under direct vision. Eventually an additional right upper quadrant 5 mm trocar would be placed to complete the cholangiogram and common bile duct exploration. The patient was placed in a reverse Trendelenburg position and slightly airplaned to the left. The gallbladder was grasped and elevated superiorly and laterally. A [place] dissector was used to take down adhesions around the neck of the gallbladder. The cystic duct was identified and skeletonized. I placed 1 clip proximally on the cystic duct and then divided the cystic duct with laparoscopic scissor about 60% of the way. I then placed a taut catheter after testing the balloon into the cystic duct and inflated the balloon. Catheter was flushed with saline followed by about 4 cc of 50-50 Omnipaque. The cholangiogram showed contrast in the duodenum readily however there were several proximal as well as distal filling defects was unclear to me whether these were potential stones or simple air bubbles. Therefore I removed the catheter and inserted a 4 Barbadian Torrie catheter. I was able to advance the catheter into the distal common bile duct and inflated the balloon and withdrew it making several passes as well as milking the duct with the [place] dissector. We did obtain some air bubbles out through the cystic duct but no debris sludge or stones. Final cholangiogram was performed to rule out any injury. I then clipped the cystic duct distally with 2 clips and finished dividing it. In similar fashion the cystic artery was identified and skeletonized clipped and divided. The gallbladder was removed from the gallbladder fossa with electrocautery. It was placed into an Endo Catch bag. Thorough irrigation was performed. At the end of the procedure there was adequate hemostasis and no evidence of any bile leaks. A final look around the abdomen showed no other abnormalities. The gallbladder and trochars were all removed and the abdomen was desufflated. The fascia of the camera port was closed using 0 Vicryl in a [id number] fashion. All the wounds were irrigated and closed using 4-0 Monocryl. Marcaine was injected around them for postoperative analgesia and skin glue used as a dressing. The patient was awaken extubated and transferred to recovery in stable condition. My physician's title i instructional assistant was present throughout the entire case... helped with prepping the patient. With exposure for trocar placement, as well as retracted the gallbladder throughout the case and also assisted with wound closure and dressing placement. I attest to the content of the Intraoperative Record and any orders documented therein. Any exceptions are noted below.
[2023-10-14] MEDS: fentaNYL citrate PF 100 MCG/2 ML VIAL IV PRN (11:53)
[2023-10-14] MEDS: fentaNYL citrate PF 100 MCG/2 ML VIAL ONE (12:07)
--- NOTE | 2023-10-14 12:16 | Gastrointestinal Consultation ---
Date of Consultation October 14, 2023 History of Present Illness Attending Physician: Tristian Can MD History of Present Illness Pt with RUQ pain, increased LFT's, CT showing choleystitis with yuridia-randi fluid, CBD dil 7-8 mm and possible 2 mm stone in CBD. WBC normal, afeb, and his pulse were normal; systolic mildly low yest afternoon. This am, his LFT's are improved from yesterday, and randi was performed with IOC showing no stone. PE from yesterday - comfortable, walking around room. He is in no distress. Abd: tender RUQ deep palpation without rebound or guarding. A/P: Cholecystitis s/p randi Likely passed CBD stone, although no lipase bump - Follow LFT's , lipase. Plan EUS /ERCP if LFT's do not normalize post op. Allergies Allergy/AdvReac Type Severity Reaction Status Date / Time No Known Allergies Allergy Unverified 10/12/23 21:30 Home Medications Medication Instructions Recorded Confirmed Type No Known Home Medications 10/12/23 10/12/23 History Patient History Social History Smoking Status: Never smoker Hx Alcohol Use: No Hx Substance Use: Yes Last Used Substance: Unknown Preferred Language: Italian Communication Ability: Effective Picker Feeder Required: No Beliefs That Will Affect Care: None Current Living Situation: Other Current Living Situation Comment: friend Other Information That Helps Us Care for You: No Feels Safe at Home: Yes Safety Concerns: Feels Safe At This Time Assistive Devices: None Results & Data Vital Signs (Past 12 Hours) Vital Signs Temp Pulse Pulse Resp BP Pulse Ox O2 Del Method 10/14/23 12:10 72 14 136/88 96 Nasal Cannula 10/14/23 12:00 77 17 123/79 95 Nasal Cannula 10/14/23 11:50 87 18 118/59 L 92 Room Air 10/14/23 11:40 87 16 139/90 100 Oxymask 10/14/23 11:32 36.3 C L 90 14 131/82 100 Oxymask 10/14/23 08:07 36.6 C 71 16 110/72 98 Room Air 10/14/23 08:00 Room Air O2 Flow Rate 10/14/23 12:10 2 10/14/23 12:00 2 10/14/23 11:50 10/14/23 11:40 8 10/14/23 11:32 8 10/14/23 08:07 10/14/23 08:00
--- NOTE | 2023-10-14 12:31 | Anesthesiology Progress Note ---
Date of Service October 14, 2023 Anesthesia Post Procedure Vital Signs Vital Signs: Temp Pulse Pulse Resp BP BP Pulse Ox 10/14/23 12:20 66 12 133/84 98 10/14/23 12:10 72 14 136/88 96 10/14/23 12:00 77 17 123/79 95 10/14/23 11:50 87 18 118/59 L 92 10/14/23 11:40 87 16 139/90 100 10/14/23 11:32 36.3 C L 90 14 131/82 100 10/14/23 08:07 36.6 C 71 16 110/72 98 10/14/23 08:00 10/13/23 20:05 36.6 C 70 18 102/62 100 10/13/23 17:55 62 98/62 L 10/13/23 17:06 67 93/53 L 10/13/23 16:06 69 93/54 L 10/13/23 14:46 36.5 C 59 L 18 95/59 L 100 O2 Del Method O2 Flow Rate 10/14/23 12:20 Nasal Cannula 2 10/14/23 12:10 Nasal Cannula 2 10/14/23 12:00 Nasal Cannula 2 10/14/23 11:50 Room Air 10/14/23 11:40 Oxymask 8 10/14/23 11:32 Oxymask 8 10/14/23 08:07 Room Air 10/14/23 08:00 Room Air 10/13/23 20:05 Room Air 10/13/23 17:55 10/13/23 17:06 10/13/23 16:06 10/13/23 14:46 Room Air Pain Intensity Right Upper Abdomen: Pain Intensity: 5 Abdomen: Pain Intensity: 6 Transfer of Care Handoff Completed per policy Notes Mental Status: alert / awake / arousable Patient Amnestic to Procedure: Yes Nausea / Vomiting: adequately controlled Pain: adequately controlled Airway Patency, RR, SpO2: stable & adequate BP & HR: stable & adequate Hydration State: stable & adequate Anesthetic Complications: no major complications apparent and Pt Satisfied with anesthetic care
[2023-10-14] MEDS: oxyCODONE/ACETAMINOPHEN 5mg/325mg TAB PO PRN (13:27)
[2023-10-15] MEDS: oxyCODONE/ACETAMINOPHEN 5mg/325mg TAB PO PRN (07:26)
--- NOTE | 2023-10-15 07:41 | Surgery Progress Note ---
Date of Service October 15, 2023 Assessment & Plan (1) Acute cholecystitis: Plan: POD#1 lap randi Labs this AM are pending. Vital signs are stable Initial labs showed elevated LFTs, yesterday they came down (he likely passed a stone), and we took him for lap randi. will recheck LFTs today to ensure continue to downtrend, otherwise GI is on board Diet advanced to regular, we will see how he fairs Incisions c/d/i Continue current pain regimen as needed Encouraged OOB and activity as tolerates If LFT's okay, diet tolerated, pain controlled he may be dispo'd when cleared by medicine w/ f/u in 2 weeks as above. LFT's ok...ok for d/c from my standpoint. f/u in office . post op instructions reviewed Admission and Anticipated Discharge Date Admission Date: October 12, 2023 Subjective Patient reporting abdominal discomfort this AM, says it feels like gas. He otherwise denies nausea/vomiting and was tolerating liquids. Diet has been advanced to regular this AM, but he has not eaten any yet. Physical Exam Physical Exam: awake, appears in some mild discomfort Respiratory: normal respiratory effort Gastrointestinal (Abdomen): Inspection/Auscultation: + abdominal surgical incision (c/d/i some ecchymosis to umbilical incision); abdomen not distended Percussion/Palpation: + abdomen tender (expected yuridia incisional discomfort ) and abdomen soft Results & Data Vital Signs (Past 12 Hours) Vital Signs Temp Pulse Resp BP BP Pulse Ox O2 Del Method 10/15/23 07:17 98.2 F 76 16 120/77 97 Room Air 10/15/23 03:17 99.1 F 76 18 100/65 95 Room Air 10/14/23 22:44 99.9 F H 76 19 99/66 L 99 Room Air PG Care Time/CCT Total # of Minutes Spent Total Time Spent with Patient: Total time spent is greater than 50% in coordination of care (as documented) at patient's floor/unit and/or counseling patient: Coding Level of Care Code 66025 Post Operative Follow-Up Diagnoses Acute cholecystitis K81.0
[2023-10-15 07:46] LABS: Basophils # (auto) 0.05 K/uL (0.00-0.20); Basophils % (auto) 0.5 %; Eosinophils # (auto) 0.14 K/uL (0.00-0.50); Eosinophils % (auto) 1.4 %; Hemoglobin 12.8 g/dl (14.0-18.0); Immature Granulocytes # (auto) 0.03 K/uL (0.01-0.20); Immature Granulocytes % (auto) 0.3 %; Lymphocytes # (auto) 1.45 K/uL (1.20-3.40); Lymphocytes % (auto) 14.5 %; Mean Corpuscular Hemoglobin 29.5 pg (25.0-34.0); Mean Corpuscular Hgb Conc 33.7 g/dL (32.0-36.0); Mean Corpuscular Volume 87.6 fL (80.0-100.0); Mean Platelet Volume 10.2 fL (9.4-12.4); Monocytes # (auto) 0.82 K/uL (0.11-0.59); Monocytes % (auto) 8.2 %; Neutrophils # (auto) 7.54 K/uL (1.40-6.50); Neutrophils % (auto) 75.1 %; Platelet Count 245 K/uL (130-400); RDW Coefficient of Variation 13.4 % (11.5-14.5); RDW Standard Deviation 43.5 fL (36.4-46.3); Red Blood Count 4.34 M/uL (4.70-6.10); White Blood Count 10.03 K/ul (4.8-10.8)
--- NOTE | 2023-10-15 07:54 | Hospitalist Progress Note ---
Date of Service October 15, 2023 Assessment & Plan (1) Acute cholecystitis: Plan: 48 yo M with no significant past medical history presents with abdominal pain and found to have cholecystitis. Patient states since last 1 month he is getting abdominal pain on and off and last 2 weeks is more consistent. Since last night he has constant pain in the right upper upper quadrant epigastric region and today pain progressed to very severe associate with nausea and vomited couple of times which prompted him come to the ER and CT scan showing possible cholecystitis. Whenever the pain is severe is feeling short of breath. And the pain radiating to the chest. Also having headache since last 10 days. Vision is also somewhat blurry since a few weeks now. Denies any headache. No runny nose. No sore throat. No cough. No patient is usually constipated. S tools are dark. Urine also dark. Ambulates okay. Currently resting comfortably and hemodynamically stable. Patient has not been to doctors for many years Acute cholecystitis, choledocholithiasis Abdominal pain Elevated LFTs CT scan c/w cholecystitis MRCP obtained - 1. No biliary ductal dilatation. Exam mildly compromised by motion artifact however suspected small distal common bile duct calculus measuring approximately 2 mm. 2. Findings suggestive of acute cholecystitis. N.p.o., IV fluids, IV cefoxitin -> IV zosyn, IV Dilaudid., IV antiemetics as needed Surgery and GI consulted and discussed with 10/13 LFTs down -> pt likely passed the stone - plan for OR Pt is now s/p cholecystectomy (10/14/2023) Cont. IVF, abx Monitor LFTs, CBC Closely monitor DVT prophylaxis SCDs for now Disposition- Medical floor Full code Admission and Anticipated Discharge Date Admission Date: October 12, 2023 Subjective Pt seen in follow up of acute cholecystitis MRCP obtained and c/w poss. choledocholithiasis LFTs improved yesterday AM -> likely passed the stone Pt underwent cholecystectomy yesterday. Currently sitting up in bed in NAD, reporting abdominal pain. No chest pain or shortness of breath. No fever, chills. Reports he is passing gas, and had a small BM, reports he ate lunch. No nausea or vomiting. Review of Systems Review of Systems: All systems reviewed & are unremarkable except as noted in Subjective Physical Exam Physical Exam: General- WD/WN in NAD Head- atraumatic Eyes- PERRL. ENT- oropharynx clear Neck- supple, no JVD. Lungs- clear to auscultation no wheezing or crackles. Heart- regular rate and rhythm; no murmur, no gallop. Abdomen- +bowel sounds, soft, + tender to palpation (post surgery). No distension. Extremities- no pretibial edema, moves extremities Neuro- alert, oriented PERRL, no facial palsy; no dysarthria; moves extremities. Results & Data Results & Data Vital Signs (Past 12 Hours) Vital Signs Temp Pulse Resp BP BP Pulse Ox O2 Del Method 10/15/23 07:17 36.8 C 76 16 120/77 97 Room Air 10/15/23 03:17 37.3 C 76 18 100/65 95 Room Air 10/14/23 22:44 37.7 C H 76 19 99/66 L 99 Room Air Laboratory Results 10/15/23 Range/Units 07:18 WBC 10.03 (4.8-10.8) K/ul RBC 4.34 L (4.70-6.10) M/uL Hgb 12.8 L (14.0-18.0) g/dl Hct 38.0 L (42.0-52.0) % MCV 87.6 (80.0-100.0) fL MCH 29.5 (25.0-34.0) pg MCHC 33.7 (32.0-36.0) g/dL RDW Std Deviation 43.5 (36.4-46.3) fL RDW Coeff of Atiya 13.4 (11.5-14.5) % Plt Count 245 (130-400) K/uL MPV 10.2 (9.4-12.4) fL Immature Gran % (Auto) 0.3 % Neut % (Auto) 75.1 % Lymph % (Auto) 14.5 % [place] % (Auto) 8.2 % Eos % (Auto) 1.4 % Baso % (Auto) 0.5 % Neut # (Auto) 7.54 H (1.40-6.50) K/uL Lymph # (Auto) 1.45 (1.20-3.40) K/uL [place] # (Auto) 0.82 H (0.11-0.59) K/uL Eos # (Auto) 0.14 (0.00-0.50) K/uL Baso # (Auto) 0.05 (0.00-0.20) K/uL Immature Gran # (Auto) 0.03 (0.01-0.20) K/uL Sodium 140 (136-145) mmol/L Potassium 3.6 (3.5-5.1) mmol/L Chloride 109 H (98-107) mmol/L Carbon Dioxide 27 (21-32) mmol/L Anion Gap 4 (3-11) BUN 3 L (6-23) mg/dl Creatinine 0.60 (0.6-1.4) mg/dl Est Cr Clr Drug Dosing 134.4 ml/min Est GFR ( Amer) 136.8 ml/min Est GFR (Non-Af Amer) 118.1 ml/min BUN/Creatinine Ratio 5.0 L (10-20) Glucose 101 H (70-99(Fasting)) mg/dl Calcium 8.5 L (8.6-10.3) mg/dl Phosphorus 3.7 (2.5-4.9) mg/dl Magnesium 1.8 (1.7-2.4) mg/dl Total Bilirubin 0.7 (0.2-1.0) mg/dl Direct Bilirubin 0.2 (0-0.2) mg/dl AST 27 (13-39) U/L ALT 86 H (7-52) U/L Alkaline Phosphatase 69 (34-104) U/L Total Protein 5.8 L (6.0-8.3) gm/dl Albumin 3.7 (3.4-5.0) gm/dl Globulin 2.1 L (2.5-4.0) gm/dl Albumin/Globulin Ratio 1.8 (0.9-2) Lipase 14 (11-82) U/L Medications Administered Current Inpatient Medications Hydromorphone HCl (Hydromorphone Inj 0.5 Mg/0.5 Ml Syr) 0.5 mg IV Q3H PRN PRN Reason: Pain Stop: 10/26/23 23:47 Last Admin: 10/14/23 23:10 Dose: 0.5 mg Famotidine (Pepcid 20mg Iv Push) 20 mg in 5 mls @ 2.5 mls/min IV Q12H CASEY Stop: 11/12/23 08:59 Last Admin: 10/14/23 20:11 Dose: 2.5 mls/min Piperacillin Sod/Tazobactam (Sod 4.5 gm/ Dextrose) 100 mls @ 25 mls/hr IV Q8H CASEY; Protocol Stop: 10/23/23 13:59 Last Admin: 10/15/23 05:31 Dose: 25 mls/hr Sodium Chloride (Nss) 1,000 mls @ 125 mls/hr IV .Q8H CASEY Stop: 11/12/23 19:44 Last Admin: 10/15/23 04:50 Dose: 125 mls/hr Ioversol (Ioversol 50ml) 50 ml IV UD PRN PRN Reason: Interaction Checking Stop: 10/18/23 09:56 Last Admin: 10/14/23 10:58 Dose: 10 ml Ondansetron HCl (Ondansetron Inj 2 Mg/Ml 2 Ml Vial) 4 mg IV Q6H PRN PRN Reason: Nausea Stop: 11/11/23 23:47 Oxycodone/Acetaminophen (Oxycodone/Acetaminophen 5mg/325mg Tab) 1 tab PO Q4H PRN PRN Reason: Moderate Pain (Scale 4, 5, 6) Stop: 10/28/23 12:36 Last Admin: 10/15/23 07:26 Dose: 1 tab Oxycodone/Acetaminophen (Oxycodone/Acetaminophen 5mg/325mg Tab) 2 tab PO Q4H PRN PRN Reason: Severe Pain (Scale 7, 8, 9,10) Stop: 10/28/23 12:36 Last Admin: 10/15/23 02:36 Dose: 2 tab
[2023-10-15 08:21] LABS: Albumin Globulin Ratio 1.8 (0.9-2); Albumin Level 3.7 gm/dl (3.4-5.0); Bilirubin Direct 0.2 mg/dl (0-0.2); Bilirubin,Total 0.7 mg/dl (0.2-1.0); Calcium 8.5 mg/dl (8.6-10.3); Creatinine Clr Calc Pharmacy 134.4 ml/min; Est GFR (African American) 136.8 ml/min; Est GFR (Non-African American) 118.1 ml/min; Globulin 2.1 gm/dl (2.5-4.0); Magnesium 1.8 mg/dl (1.7-2.4); Phosphorus 3.7 mg/dl (2.5-4.9); Potassium 3.6 mmol/L (3.5-5.1); Total Protein 5.8 gm/dl (6.0-8.3)
--- NOTE | 2023-10-15 16:56 | Discharge Summary ---
Date of Service October 15, 2023 Admission HPI Per Admitting Provider 48-year-old male with no significant past medical history presents with abdominal pain and found to have cholecystitis. Patient states since last 1 month he is getting abdominal pain on and off and last 2 weeks is more consistent. Since last night he has constant pain in the right upper upper quadrant and epigastric region and today pain progressed to very severe associate with nausea and vomited couple of times which prompted him come to the ER and CT scan showing possible cholecystitis. Whenever the pain is severe is feeling short of breath. And the pain radiating to the chest. Also having headache since last 10 days. Vision is also somewhat blurry since a few weeks now. Denies any headache. No runny nose. No sore throat. No cough. Patient is usually constipated. Stools are dark. Urine also dark. Ambulates okay. Currently resting comfortably and hemodynamically stable. Patient has not been to doctors for many years Past medical history. No significant medical history as per patient, but not been to doctors for many years Past surgical history. Denies any surgical history. Social history. Patient used to smoke half pack every week but states since last 40 days he is only smoked 3 cigarettes. Says quit alcohol many many years ago. 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 Family history. Significant for diabetes as per patient Admission Exam Per Admitting Provider General- Not in distress Head- atraumatic Eyes- PERRL. ENT- oropharynx clear Neck- supple, no JVD. Lungs- clear to auscultation no wheezing or crackles. Heart- regular rate and rhythm; no murmur, no gallop. Abdomen- normal bowel sounds, soft, RUQ tenderness with mild guarding present. No distension. Extremities- no pretibial edema, no erythema seen. Neuro- alert, oriented PERRL, no facial palsy; no dysarthria; moves extremities. Principal Diagnosis Cholecystitis s/p laparoscopic cholecystectomy Elevated LFTs Discharge Exam General- WD/WN in NAD Head- atraumatic Eyes- PERRL. ENT- oropharynx clear Neck- supple, no JVD. Lungs- clear to auscultation no wheezing or crackles. Heart- regular rate and rhythm; no murmur, no gallop. Abdomen- +bowel sounds, soft, + tender to palpation (post surgery). No distension. Extremities- no pretibial edema, moves extremities Neuro- alert, oriented PERRL, no facial palsy; no dysarthria; moves extremities. Discharge Data Allergies Allergy/AdvReac Type Severity Reaction Status Date / Time No Known Allergies Allergy Unverified 10/12/23 21:30 Consultations 10/12/23 21:56 ED Decision to Admit Stat 10/13/23 08:00 Consult General Surgery Routine 10/13/23 18:11 Consult Gastroenterology Routine Procedures Performed Operation Date: 10/14/23 09:30 Actual Procedures p Laparoscopic cholecystectomy with intraop cholangiogram, Exploration of common bile duct. - Hans Arce, Ordered Studies 10/12/23 18:43 CT abd pelvis IV con only Stat 10/13/23 07:43 MR MRCP Stat 10/14/23 [place] cholangiogram OR Routine Hospital Course (1) Acute cholecystitis: 48 yo M with no significant past medical history presents with abdominal pain and found to have cholecystitis. Patient states since last 1 month he is getting abdominal pain on and off and last 2 weeks is more consistent. Since last night he has constant pain in the right upper upper quadrant epigastric region and today pain progressed to very severe associate with nausea and vomited couple of times which prompted him come to the ER and CT scan showing possible cholecystitis. Whenever the pain is severe is feeling short of breath. And the pain radiating to the chest. Also having headache since last 10 days. Vision is also somewhat blurry since a few weeks now. Denies any headache. No runny nose. No sore throat. No cough. No patient is usually constipated. Stools are dark. Urine also dark. Ambulates okay. Currently resting comfortably and hemodynamically stable. Patient has not been to doctors for many years Acute cholecystitis, choledocholithiasis Abdominal pain Elevated LFTs CT scan c/w cholecystitis MRCP obtained - 1. No biliary ductal dilatation. Exam mildly compromised by m otion artifact however suspected small distal common bile duct calculus measuring approximately 2 mm. 2. Findings suggestive of acute cholecystitis. N.p.o., IV fluids, IV cefoxitin -> IV zosyn, IV Dilaudid., IV antiemetics as needed Surgery and GI consulted and discussed with 10/13 LFTs down -> pt likely passed the stone - plan for OR Pt is now s/p cholecystectomy (10/14/2023) Cont. IVF, abx while inpt LFTs improved Pt is tolerating diet, passing flatus and had a small BM. per surgery, pt ok to discharge. Follow up w/ surgery as outpt. Total Time Total Time Spent Total Time Spent (In Minutes): 40 Discharge Plan Discharge Items Patient Disposition: Home - Self-Care Reason For Visit: CHOLECYSTITIS Discharge Diagnosis: Cholecystitis s/p laparoscopic cholecystectomy Elevated LFTs Activity: Per Instructions section Lifting: No more than 10 pounds Bathing Comment: may shower; no soaking in tubs/pools x 2 weeks Exercise/Sports: Wait until after follow-up appointment Driving/Machine Use: no driving while taking narcotics for pain Non-emergency contact: Primary Care Provider and Surgeon Call non-emergency contact if: your symptoms worsen, your pain is worsening, you have a fever, your temperature is above 101.5, your wound has increased redness and your wound has increased drainage Follow-up/Referrals: Hans Arce DO [Surgeon] - 10/29/23 9:00 am () Aik Alexander CRNP [Outside Practitioners] - (Date & Time 10/18/2023 9:40 AM Provider Aki Alexander CRNP Department [facility] ) Diet: Regular Addtl Attending Provider Instructions: Follow up with primary care physician and your surgeon. For pain, take percocet as needed as prescribed. Make sure to stay well hydrated. Make sure to have soft and regular bowel movements , you can use miralax daily as needed. Per surgery - You have skin glue over your incisions called dermabond. you may shower with this on. It will tend to dissolve and fall off within a couple weeks. Do not pick at the skin glue. Pending Studies at Discharge: Yes Studies:: surgical pathology Stand-Alone Forms: My [employer], Smoking Cessation Medications and DC Order Prescriptions: New oxycodone-acetaminophen [Percocet] 5-325 mg Tablet 1 tab PO Q4H PRN (Reason: pain) Qty: 14 0RF Discharge Orders: Discharge Order (Routine); Ordered 10/15/23 Ordered By: Tristian Can Admission Data Admit Date/Time: 10/12/23 22:45 Attending Provider: Tristian Can Admit Provider: Eitan Calvin Primary Care Provider: PCP,NO Other Providers: Eitan Calvin; Hans Arce; Paco Meeks Other Interventions: Discharge Summary Assessment (RN) Last Done: 10/15/23 16:38
== END 2023-10-15 17:40 | disposition home or self-care (01) ==
LOC: ED 18:35 → INTOOBSV 22:45 → 3N 22:45